=== PATIENT | male | born 1960 | race Caucasian/White ===

== ENCOUNTER 2016-08-22 09:42 | Emergency (ER) | payer OTHER ==
[~2016-08-22] VITALS: Ht 177.8 cm; Wt 127.0 kg
[~2016-08-22 09:42] MED LIST: BENADRYL25 MG; ULTRAM50 MG PO; ZANTAC150 MG PO
[2016-08-22 10:36] LABS: INFLUENZA A VIRAL ANTIGEN NEGATIVE; INFLUENZA B VIRAL ANTIGEN NEGATIVE
[2016-08-22 11:09] LABS: HEMATOCRIT 43.1 % (38.0-50.0); MCH 30.4 PG (29.0-34.0); MCHC 34.6 G/DL (30.0-36.0); MEAN PLAT.VOLUME 10.2 uM^3 (9.0-12.4); PLATELET COUNT 179 K/uL (156-360); RBC DIS.WIDTH-CV 12.3 % (11.8-14.6); RBC DIS.WIDTH-SD 38.8 % (39-53); WHITE BLOOD COUNT 8.2 K/uL (4.1-10.2)
[2016-08-22 11:20] LABS: CHLORIDE 106 mEq/L (99-109); POTASSIUM 3.8 mEq/L (3.7-5.4); SODIUM 139 mEq/L (136-147)
[2016-08-22 11:22] LABS: GLUCOSE 102 mg/dL (70-99)
[2016-08-22 11:24] LABS: ANION GAP 9 MEQ/L (2-14)
[2016-08-22 11:26] LABS: GFR ESTIMATE (CALCULATED) > 59 mL/min/
[2016-08-22 11:27] LABS: UREA NITROGEN (BUN) 12 mg/dL (9-23)
[2016-08-22 11:35] LABS: TROP-I INTERPRETATION NEGATIVE; TROPONIN-I < 0.01 ng/mL (0.0-0.30)
[2016-08-22] MEDS ORDERED: LEVAQUIN750 MG PO (13:45)
[2016-08-22 13:52] VITALS: BP 140/98
== END 2016-08-22 13:56 | disposition home or self-care (01) ==
LOC: EME 09:42
DX: J20.9 Acute bronchitis, unspecified (principal); Z87.891 Personal history of nicotine dependence
CPT/HCPCS: 71020; 80048; 84484; 85027; 87502; 93005; 99281; 99285

== ENCOUNTER 2018-02-14 16:41 | Emergency (ER) | payer OTHER ==
[~2018-02-14] VITALS: Ht 177.8 cm; Wt 121.7 kg
[~2018-02-14 16:41] MED LIST changes: +LEVAQUIN750 MG PO
[2018-02-14 17:41] LABS: BASOPHIL (%) 0.5 % (0-1); EOSINOPHIL (%) 2.5 % (0-5); EOSINOPHIL COUNT 0.2 K/uL (0-0.3); HEMATOCRIT 40.7 % (38.0-50.0); IMMATURE GRANULOCYTE (%) 0.5 % (0.0-0.7); LYMPHOCYTE (%) 21.6 % (15-42); LYMPHOCYTE COUNT 1.8 K/uL (1.0-2.8); MCH 31.2 PG (29.0-34.0); MCHC 34.4 G/DL (30.0-36.0); MCV 90.6 FL (86-99); MONOCYTE (%) 6.6 % (3-12); MONOCYTE COUNT 0.6 K/uL (0-0.8); NEUTROPHIL (%) 68.3 % (45-76); NEUTROPHIL COUNT 5.7 K/uL (1.8-6.4); PLATELET COUNT 171 K/uL (156-360); RBC DIS.WIDTH-CV 12.1 % (11.8-14.6); RBC DIS.WIDTH-SD 40.1 % (39-53); RED BLOOD COUNT 4.49 M/uL (4.00-5.50); WHITE BLOOD COUNT 8.3 K/uL (4.1-10.2)
[2018-02-14 17:53] LABS: CHLORIDE 110 mEq/L (99-109); POTASSIUM 3.5 mEq/L (3.7-5.4); SODIUM 143 mEq/L (136-147)
[2018-02-14 17:55] LABS: GLUCOSE 107 mg/dL (70-99)
[2018-02-14 17:59] LABS: CREATININE 1.2 mg/dL (0.6-1.3); GFR ESTIMATE (CALCULATED) > 59 mL/min/ (58.99-99999)
[2018-02-14 18:00] LABS: UREA NITROGEN (BUN) 20 mg/dL (9-23)
[2018-02-14 19:10] VITALS: BP 140/86
== END 2018-02-14 20:25 | disposition designated cancer center or children's hospital, planned readmission (85) ==
LOC: EME 16:41
PROVIDERS: Emergency Medicine
DX: T23.201A Burn of second degree of right hand, unspecified site, initial encounter (principal); T52.0X1A Toxic effect of petroleum products, accidental (unintentional), initial encounter; T31.0 Burns involving less than 10% of body surface; Z87.891 Personal history of nicotine dependence
CPT/HCPCS: 80048; 85025; 99281; 99285; J2270; J2405; J3010; J7030